=== PATIENT | female | born 1990 | race Caucasian/White ===

== ENCOUNTER → 2021-03-16 14:17 | Outpatient (BNVA) | payer OTHER, SELFPAY | PROVIDERS: Visit Provider Registered Nurse | DX: Z02.1 Encounter for pre-employment examination (principal) | CPT/HCPCS: 80307 ==

== ENCOUNTER 2024-03-14 16:57 | Emergency (ER) | payer SELFPAY ==
[2024-03-14 17:32] VITALS: BP 102/65; PULSE 71; RESP 18; TEMP 36.7; O2SAT 99; BMI 25.7
[2024-03-14 18:56] VITALS: BP 112/67; PULSE 70; O2SAT 99
--- NOTE | 2024-03-14 20:21 | ED_ITS ---
HPI - Wound/Laceration 2 General: Chief Complaint: Wound/Laceration Stated Complaint: right hand stitches coming out Time Seen by Provider: 03/14/24 17:28 Source: patient Mode of arrival: ambulatory Limitations: no limitations History of Present Illness: Patient is a 34-year-old female presenting to the emergency department with 2 lacerations to her right palm that she suffered earlier today while at work. States this is not a Worker's Compensation issue because she smokes weed. She was seen at [facility] earlier had it repaired there but is unhappy with how it cosmetically looks and wants it repaired here. She states that she uses her hand a lot at work and she knows that she would have broken open the prior sutures. No new symptoms to report, she was prescribed antibiotics and had her tetanus updated earlier. Onset (ago): hour(s) Extremity Location: Right: hand Place: work Patient tetanus UTD: Yes (Updated earlier today) Context: accidental Associated symptoms: Denies chills, fever(s), nausea or vomiting Related Data Allergies Allergy/AdvReac Type Severity Reaction Status Date / Time No Known Allergies Allergy Unverified 03/16/21 14:17 Review of Systems 2 General: Reports: 10 or more systems reviewed and unremarkable except in HPI and below Const: Denies: fever(s) or chills Card: Denies: chest pain Resp: Denies: dyspnea GI: Denies: abdominal pain, nausea, vomiting or diarrhea Musc: Denies: extremity pain or joint pain Skin/Breast: Reports: new lesions (Right palm laceration); Denies: rash Neuro: Denies: headache(s) Physical Exam 2 Const: COMMON NORMALS: no acute distress, average body habitus, patient oriented x3, no limitations, healthy appearing, alert and well nourished HENMT: COMMON NORMALS: normocephalic and atraumatic HEAD & SCALP: n ormocephalic and atraumatic Neck/C-Spine: COMMON NORMALS: full ROM, no lymphadenopathy, supple and no meningeal signs Resp: COMMON NORMALS: normal respiratory effort, No use of accessory muscles and clear to auscultation bilaterally AUSCULTATION: clear to auscultation bilaterally Cardio: COMMON NORMALS: regular rate and regular rhythm RATE: regular rate RHYTHM: regular rhythm Extremity: COMMON NORMALS: full ROM and capillary refill normal Neuro: COMMON NORMALS: patient oriented x3 SENSORIUM/ORIENTATION: Yes alert MENINGEAL SIGNS: Yes no meningeal signs Skin: COMMON NORMALS: turgor normal NARRATIVE SKIN EXAM: There are 2 adjacent linear lacerations to the right palm. The first and more lateral 1 measures approximately 3 cm with no active bleeding. The second 1 is just medial to this measures about 2 cm. Evidence of prior suturing. SKIN IMAGES (FEMALE): 1. 2. GENERAL SKIN EXAM: turgor normal Procedures Laceration Laceration 1: Site: hand Side (If applicable): right Size (cm): 3 Description: linear and clean Depth: simple, single layer Local Anesthetic: lidocaine 2% and with epi Amount of anesthesia used (mL): 2 Pre-repair: wound explored Skin layer closed with: other (Prolene) Size (cm): 4-0 Number of sutures: 5 Technique: simple, interrupted Laceration 2: Site: upper extremity Side (If applicable): right Size (cm): 2 Description: linear and clean Depth: simple, single layer Local Anesthetic: lidocaine 2% and with epi Amount of anesthesia used (mL): 2 Pre-repair: wound explored Skin layer closed with: other (Prolene) Size (cm): 4-0 Number of sutures: 3 Technique: simple, interrupted Course 2 Vital Signs: Vital signs: Vital Signs Temperature 98.1 F 03/14/24 17:32 Pulse Rate 70 03/14/24 18:56 Respiratory Rate 18 03/14/24 17:32 Blood Pressure 112/67 03/14/24 18:56 Pulse Oximetry 99 03/14/24 18:56 Oxygen Delivery Me thod Room Air 03/14/24 17:32 MDM - Wound/Laceration Medical Decision Making Patient presented just because she wanted new wound closure from laceration she suffered earlier today. It appeared prior to closure was done with running sutures, she did not like this. Because of this to use simple interrupted and today total stitches between the 2 lacerations, she was much more pleased this time around. She is already on antibiotics and did have her tetanus updated. She will be discharged home with instructions to have the sutures out in 5 to 7 days. No radiology studies performed this visit Discharge Plan Discharge Patient Disposition: Home Clinical Impression: Laceration of hand, right Condition: Stable Discharge Orders: Discharge ED (Routine); Ordered 03/14/24 Ordered By: Michael Koroma Patient Instructions: Laceration (ED) Activity Restrictions/Additional Instructions: Sutures out in 5 to 7 days. Please continue taking your antibiotics. Your tetanus was updated today. Please keep wound dry, but when you clean it you may dab clean with warm water and soap. Avoid using the right hand is much as possible to allow for quick proper healing. Please monitor for any signs of infection and return if so. Coding Level of Care Code ED [employer] Worker for Michelle Gonzales
== END 2024-03-14 18:58 | disposition home or self-care (01) ==
PROVIDERS: Emergency Provider Physician Assistant
DX: S61.411A Laceration without foreign body of right hand, initial encounter (principal); X58.XXXA Exposure to other specified factors, initial encounter
CPT/HCPCS: 12002; 99282